=== PATIENT | female | born 1985 | race Caucasian/White ===

== ENCOUNTER 2018-06-13 06:19 | Emergency (ER) | payer MEDICAID ==
[2018-06-13] MEDS ORDERED: ONDANSETRON 4 MG TAB.RAPDIS PO ONE (07:42)
[2018-06-13] MEDS ORDERED: CLONIDINE HCL 0.1 MG TABLET PO ONE (10:35)
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
[2018-06-13 11:38] VITALS: BP 132/96
== END 2018-06-13 11:38 | disposition home or self-care (01) ==
LOC: ER 06:19
DX: F13.239 Sedative, hypnotic or anxiolytic dependence with withdrawal, unspecified (principal); R53.81 Other malaise; F17.200 Nicotine dependence, unspecified, uncomplicated; Z90.710 Acquired absence of both cervix and uterus; Z88.0 Allergy status to penicillin
CPT/HCPCS: 99283; J3490; S0119